=== PATIENT | male | born 1960 | race Caucasian/White ===

== ENCOUNTER 2017-08-23 21:26 | Emergency (ER) | payer OTHER | END 2017-08-23 23:26 | disposition home or self-care (01) | LOC: D.ER 21:26 | DX: S93.402A Sprain of unspecified ligament of left ankle, initial encounter (principal); W22.8XXA Striking against or struck by other objects, initial encounter; Y93.89 Activity, other specified; Y92.89 Other specified places as the place of occurrence of the external cause ==

== ENCOUNTER → 2020-06-16 17:54 | Outpatient (CLI) | payer OTHER ==
[2020-05-27 11:33] VITALS: BMI 23.2
[~2020-06-16 17:54] MED LIST: AUGMENTIN 875-11 TAB PO; Coumadin [PBKC] PO; DECADRON4 MG PO; HYDROCODON-ACE1 EAC7 PO; JANTOVEN5 MG PO; KEFLEX500 MG PO; LOVENOX80 MG/0.8 SC; MACROBID100 MG PO; MELATONIN 3 MG1 TAB PO; MIRALAX17 GM PO; PEPCID PO; VENTOLIN HFA [SP8 GM INH; VITAMIN C PO; VITAMIN D325 MC1 PO; XANAX0.25 MG PO
[2020-06-16 18:50] LABS: INR 3.21 (0.85-1.17); PROTIME 30.6 SECONDS (11.6-15.0)
== END | disposition home or self-care (01) ==
LOC: D.LABREF 17:54
PROVIDERS: ATTEND Family Medicine
DX: I82.441 Acute embolism and thrombosis of right tibial vein (principal); Z51.81 Encounter for therapeutic drug level monitoring; Z79.01 Long term (current) use of anticoagulants

== ENCOUNTER 2020-06-23 18:33 | Emergency (ER) | payer OTHER ==
[~2020-06-23] VITALS: Ht 177.8 cm; Wt 72.7 kg
[2020-06-23 18:34] VITALS: Ht 177.8 cm; Wt 72.7 kg
[2020-06-23 19:25] LABS: HEMATOCRIT 45.8 % (42.0-54.0); HEMOGLOBIN 15.4 g/dL (13.5-17.5); LYMPHOCYTE ABS# 2.82 10x3/uL (1.32-3.57); MCH 33.7 pg (26.0-34.0); MCHC 33.6 g/dL (31.0-37.0); MCV 100.2 fL (80.0-100.0); MEAN PLATELET VOLUME 9.2 fL (7.4-10.4); NEUTROPHIL ABS# 1.32 10x3/uL (1.78-5.38); RBC 4.57 10x6/uL (4.20-6.10); RDW 16.3 % (11.5-14.5); WBC 4.9 10x3/uL (4.8-10.8)
[2020-06-23 19:26] LABS: PLATELET COUNT 129 10x3/uL (130-400)
[2020-06-23 19:38] LABS: CALC OSMOLALITY 280 mosm/kg (275-300); CALCIUM 8.9 mg/dL (8.5-10.1); CARBON DIOXIDE 28.9 mmol/L (21.0-32.0); CHLORIDE - SERUM 106 mmol/L (98-107); CREATININE - SERUM 0.7 mg/dL (0.6-1.3); GLUCOSE 84 mg/dL (74-106); POTASSIUM - SERUM 3.8 mmol/L (3.5-5.1); SODIUM 143 mmol/L (136-145); UREA NITROGEN 5 mg/dL (7-18); eGFR NON AFRICAN AMERICAN > 90 mL/min (90-120)
[2020-06-23 19:44] LABS: ALBUMIN 3.2 g/dL (3.4-5.0); ALKALINE PHOSPHATASE 166 U/L (30-120); ALT (SGPT) 20 U/L (10-68); PROTEIN - SERUM 6.9 g/dL (6.4-8.2)
[2020-06-23 19:46] LABS: APTT 21.5 SECONDS (22.8-39.4); INR 1.4 (0.85-1.17); PROTIME 15.9 SECONDS (11.6-15.0)
[2020-06-23] MEDS ORDERED: WARFARIN SODIU7.5 MG PO (20:32)
[2020-06-23 21:14] LABS: EOSINOPHILS 6 % (0-7); LYMPHOCYTES 69 % (15-50); MONOCYTES 4 % (2-11); NEUTROPHILS 21 % (40-80); PLATELET ESTIMATE NORMAL
[2020-06-23 21:42] VITALS: BP 98/50
== END 2020-06-23 21:43 | disposition home or self-care (01) ==
LOC: D.ER 18:33
PROVIDERS: Family Medicine
DX: I82.402 Acute embolism and thrombosis of unspecified deep veins of left lower extremity (principal); Z86.73 Personal history of transient ischemic attack (TIA), and cerebral infarction without residual deficits; K21.9 Gastro-esophageal reflux disease without esophagitis

== ENCOUNTER → 2020-06-24 17:30 | Outpatient (CLI) | payer OTHER ==
[2020-06-23 18:34] VITALS: BMI 23.0
[~2020-06-24 17:30] MED LIST changes: +WARFARIN SODIU7.5 MG PO
[2020-06-24 17:39] LABS: PROTIME 18.6 SECONDS (11.6-15.0)
[2020-06-24 17:44] LABS: INR 1.71 (0.85-1.17)
== END | disposition home or self-care (01) ==
LOC: D.LABREF 17:30
PROVIDERS: ATTEND Family Medicine
DX: Z79.01 Long term (current) use of anticoagulants (principal)

== ENCOUNTER → 2020-07-01 14:28 | Outpatient (CLI) | payer OTHER ==
[2020-06-23 18:34] VITALS: BMI 23.0
[2020-07-01 14:58] LABS: INR 2.36 (0.85-1.17)
== END | disposition home or self-care (01) ==
LOC: D.LABREF 14:28
PROVIDERS: ATTEND Family Medicine
DX: Z51.81 Encounter for therapeutic drug level monitoring (principal)

== ENCOUNTER → 2020-07-08 10:08 | Outpatient (CLI) | payer OTHER ==
[2020-06-23 18:34] VITALS: BMI 23.0
[2020-07-08 11:52] LABS: INR 1.5 (0.85-1.17); PROTIME 16.8 SECONDS (11.6-15.0)
== END | disposition home or self-care (01) ==
LOC: D.LABREF 10:08
PROVIDERS: ATTEND Family Medicine
DX: Z51.81 Encounter for therapeutic drug level monitoring (principal)

== ENCOUNTER → 2020-07-15 09:07 | Outpatient (CLI) | payer OTHER ==
[2020-06-23 18:34] VITALS: BMI 23.0
[2020-07-15 10:47] LABS: INR 2.1 (0.85-1.17); PROTIME 21.9 SECONDS (11.6-15.0)
== END | disposition home or self-care (01) ==
LOC: D.LABREF 09:07
PROVIDERS: ATTEND Family Medicine
DX: I82.441 Acute embolism and thrombosis of right tibial vein (principal)

== ENCOUNTER → 2020-07-25 14:12 | Outpatient (CLI) | payer OTHER ==
[2020-06-23 18:34] VITALS: BMI 23.0
[2020-07-25 14:33] LABS: INR 2.84 (0.85-1.17); PROTIME 27.8 SECONDS (11.6-15.0)
== END | disposition home or self-care (01) ==
LOC: D.LABREF 14:12
PROVIDERS: ATTEND Family Medicine
DX: R79.1 Abnormal coagulation profile (principal); Z79.01 Long term (current) use of anticoagulants

== ENCOUNTER → 2020-08-05 15:59 | Outpatient (CLI) | payer OTHER ==
[2020-06-23 18:34] VITALS: BMI 23.0
[2020-08-05 17:26] LABS: INR 1.84 (0.85-1.17); PROTIME 19.7 SECONDS (11.6-15.0)
== END | disposition home or self-care (01) ==
LOC: D.LABREF 15:59
PROVIDERS: ATTEND Family Medicine
DX: Z79.01 Long term (current) use of anticoagulants (principal)

== ENCOUNTER → 2020-08-12 15:26 | Outpatient (CLI) | payer OTHER ==
[2020-06-23 18:34] VITALS: BMI 23.0
[2020-08-12 16:09] LABS: INR 1.68 (0.85-1.17); PROTIME 18.3 SECONDS (11.6-15.0)
== END | disposition home or self-care (01) ==
LOC: D.LABREF 15:26
PROVIDERS: ATTEND Family Medicine
DX: Z79.01 Long term (current) use of anticoagulants (principal)

== ENCOUNTER → 2020-08-27 12:37 | Outpatient (CLI) | payer OTHER ==
[2020-06-23 18:34] VITALS: BMI 23.0
[2020-08-27 13:07] LABS: INR 2.16 (0.85-1.17); PROTIME 22.4 SECONDS (11.6-15.0)
== END | disposition home or self-care (01) ==
LOC: D.LABREF 12:37
PROVIDERS: ATTEND Internal Medicine Hematology & Oncology
DX: Z79.01 Long term (current) use of anticoagulants (principal)

== ENCOUNTER → 2020-09-02 17:31 | Outpatient (CLI) | payer OTHER ==
[2020-06-23 18:34] VITALS: BMI 23.0
[2020-09-02 17:47] LABS: INR 1.99 (0.85-1.17)
== END | disposition home or self-care (01) ==
LOC: D.LABREF 17:31
PROVIDERS: ATTEND Internal Medicine Hematology & Oncology
DX: Z79.01 Long term (current) use of anticoagulants (principal)

== ENCOUNTER → 2020-09-09 10:05 | Outpatient (CLI) | payer OTHER ==
[2020-06-23 18:34] VITALS: BMI 23.0
[2020-09-09 10:42] LABS: INR 2.32 (0.85-1.17); PROTIME 23.7 SECONDS (11.6-15.0)
== END | disposition home or self-care (01) ==
LOC: D.LABREF 10:05
PROVIDERS: ATTEND Internal Medicine Hematology & Oncology
DX: Z51.81 Encounter for therapeutic drug level monitoring (principal); Z86.711 Personal history of pulmonary embolism; Z79.01 Long term (current) use of anticoagulants; I82.441 Acute embolism and thrombosis of right tibial vein

== ENCOUNTER → 2020-09-17 14:21 | Outpatient (CLI) | payer OTHER ==
[2020-06-23 18:34] VITALS: BMI 23.0
[2020-09-17 14:32] LABS: INR 1.12 (0.85-1.17); PROTIME 13.4 SECONDS (11.6-15.0)
== END | disposition home or self-care (01) ==
LOC: D.LABREF 14:21
PROVIDERS: ATTEND Internal Medicine Hematology & Oncology
DX: Z79.01 Long term (current) use of anticoagulants (principal)